=== PATIENT | male | born 1985 | race Caucasian/White ===

== ENCOUNTER 2025-03-06 15:55 | Emergency (ER) | payer OTHER, SELFPAY ==
--- NOTE | ~2025-03-06 | XR_ITS ---
Exam: 2 view left tibia-fibula AP and lateral x-rays lower extremity INDICATION: Erythema and swelling Prior: None FINDINGS: There is no sign of erosion, periosteal new bone formation, or other bony abnormality. There is reticulation of subcutaneous soft tissues. XR/XR tibia fibula LT 2V IMPRESSION: Soft tissue edema. No bony abnormality. Electronically signed by: Jv Gomez MD 03/06/2025 04:53 PM EDT
--- NOTE | ~2025-03-06 | US_ITS ---
CLINICAL HISTORY: swelling. DVT? Venous duplex ultrasound left lower extremity Comparison: None provided Findings: The visualized deep veins are fully compressible with normal Doppler color flow and spectral tracings. No popliteal cyst. Enlarged left inguinal lymph nodes the largest 4.1 cm x 2.1 cm x 0.9 cm, nonspecific and could be reactive. IMPRESSION: 1. Negative for left lower extremity deep vein thrombosis. 2. Enlarged left inguinal lymph nodes nonspecific and could be reactive. This document has been electronically signed by: Jacklyn Clay MD on 03/06/2025 17:20:40
--- NOTE | ~2025-03-06 | XR_ITS ---
EXAMINATION: XR FOOT, LEFT CLINICAL INFORMATION: swelling redness COMPARISON: None available. TECHNIQUE: AP, lateral, and oblique views of the left foot. FINDINGS: No fracture, dislocation, or suspicious bone lesion. There is normal alignment. Joint spaces are preserved. There is a mild pes planus. There is diffuse soft tissue swelling, most prominent along the dorsum of the foot. XR/XR foot LT 2V IMPRESSION: 1. Soft tissue swelling most prominent along the dorsum of the foot. No underlying bony abnormalities. Electronically signed by: Nicanor Snyder MD 03/06/2025 04:52 PM EDT
[2025-03-06 16:02] VITALS: BP 131/79; PULSE 105; RESP 20; TEMP 37; O2SAT 100; BMI 21.4
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
== END 2025-03-06 21:01 | disposition left against medical advice (07) ==
LOC: HO.ED 20:45
PROVIDERS: Emergency Provider Emergency Medicine
DX: L03.116 Cellulitis of left lower limb (principal)
CPT/HCPCS: 73590; 73620; 93971; 99281; 99284

== ENCOUNTER → 2025-03-06 16:04 | Outpatient (BNV) | payer OTHER, SELFPAY | PROVIDERS: Visit Provider Radiology Diagnostic Radiology | DX: M79.89 Other specified soft tissue disorders (principal); R60.0 Localized edema | CPT/HCPCS: 73590; 73620; 93971 ==

== ENCOUNTER 2025-03-07 15:30 | Emergency (ER) | payer OTHER, SELFPAY ==
[2025-03-07 15:43] VITALS: BP 135/76; PULSE 95; RESP 16; TEMP 36.7; O2SAT 98; BMI 21.2
--- NOTE | 2025-03-07 15:44 | ED_ITS ---
HPI - General Adult General Chief complaint: Extremity Problem Stated complaint: ? blood infection Related Data Allergies Allergy/AdvReac Type Severity Reaction Status Date / Time No Known Allergies Allergy Verified 03/07/25 15:47 PMF Social History Social History Advance Directives: No Advance Directives Information Provided: No Do you have a plan to hurt others: No Plan Physical Exam ED Vital Signs: Vital Signs - 24 hr 03/07/25 15:43 Temperature 98.0 F Pulse Rate 95 Respiratory Rate 16 Blood Pressure 135/76 Pulse Oximetry 98 Oxygen Delivery Method Room Air BMI result Body Mass Index 21.2 Course Course Course Narrative: This is a rapid medical exam performed by Beverly Caes NP: Additional HPI, ROS, PE not included below will be deferred to primary provider. Patient is a 39y/o M presenting with complaint of LLE erythema, warmth and swelling. Presented here yesterday but left without completing treatment. 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 Attempted to contact patient via telephone to discuss lab results, no answer, unable to leave voicemail. Medical Decision Making Lab Data 03/07/25 16:18 03/07/25 16:18 Labs: Lab Results 03/07/25 Range/Units 16:18 WBC 5.6 (4.8-10.8) X10*3/uL RBC 4.15 L (4.60-5.80) X10*6/uL Hgb 9.0 L (14.0-18.0) g/dl Hct 29.4 L (42.0-52.0) % MCV 70.8 L (80.0-98.0) fL MCH 21.7 L (27.0-33.0) pg MCHC 30.6 L (31.0-36.0) g/dl RDW 17.0 H (11.0-16.0) % Plt Count 310 (160-400) X10*3/uL MPV 8.9 L (9.4-12.4) fL Immature Gran % (Auto) 0.2 (0.0-0.4) % Neut % (Auto) 63.0 (45-73) % Lymph % (Auto) 24.8 (20-40) % Coleman % (Auto) 10.2 (2-11) % Eos % (Auto) 1.1 (0-4) % Baso % (Auto) 0.7 (0-2) % Lymph # (Auto) 1.4 (1.2-4.9) X10*3/uL Coleman # (Auto) 0.6 (0.1-1.2) X10*3/uL Eos # (Auto) 0.1 (0.0-0.4) X10*3/uL Baso # (Auto) 0.0 (0.0-0.2) X10*3/uL Abs Immat Gran (auto) 0.01 (0.00-0.03) X10*3/uL Absolute Neuts (auto) 3.5 (2.0-8.3) x10*3/uL Absolute Nucleated RBC 0.000 (0.0-0.012) X10*3/uL Nucleated RBC % (auto) 0.0 (0.0-0.2) /100WBC ESR 63 H (0-15) MM/HR Sodium 139 (135-145) mmol/L Potassium 4.4 (3.3-5.1) mmol/L Chloride 109 H (96-108) mmol/L Carbon Dioxide 27 (22-29) mmol/L Anion Gap 7 L (12-20) BUN 12 (9-16) mg/dL Creatinine 0.56 (0.5-1.4) mg/dL Estim Creat Clear Calc 174.8 Estimated GFR > 60 Random Glucose 101 (60-115) mg/dL Calcium 8.8 (8.4-10.2) mg/dL Total Bilirubin 0.2 (0.0-1.0) mg/dL AST 78 H (5-37) U/L ALT 97 H (0-40) U/L Alkaline Phosphatase 120 H (39-117) U/L C-Reactive Protein 5.01 H (< or = 0.50) mg/dL Total Protein 8.4 H (6.5-8.0) g/dL Albumin 3.8 (3.5-5.0) g/dL Discharge Plan Discharge Clinical Impression: Foot pain, left Patient Disposition: Left W/O Completing Treatment Discharge Date/Time: 03/07/25 20:55
[2025-03-07 16:23] LABS: MANUAL DIFF FLAG NO
[2025-03-07 16:31] LABS: Hematocrit 29.4 % (42.0-52.0); Hemoglobin 9.0 g/dl (14.0-18.0); Imm Gran Abs Auto 0.01 X10*3/uL (0.00-0.03); Imm Gran Pct Auto 0.2 % (0.0-0.4); Lymphocytes Absolute Auto 1.4 X10*3/uL (1.2-4.9); Mean Corpuscular HGB Conc 30.6 g/dl (31.0-36.0); Mean Corpuscular Hemoglobin 21.7 pg (27.0-33.0); Mean Corpuscular Volume 70.8 fL (80.0-98.0); NRBC Abs Auto 0.000 X10*3/uL (0.0-0.012); NRBC Pct Auto 0.0 /100WBC (0.0-0.2); Platelet Count 310 X10*3/uL (160-400); Red Blood Count 4.15 X10*6/uL (4.60-5.80); White Blood Count 5.6 X10*3/uL (4.8-10.8)
[2025-03-07 16:45] LABS: Alanine Aminotransferase 97 U/L (0-40); Albumin Level 3.8 g/dL (3.5-5.0); Alkaline Phosphatase 120 U/L (39-117); Anion Gap 7 (12-20); Aspartate Amino Transferase 78 U/L (5-37); Blood Urea Nitrogen 12 mg/dL (9-16); Calcium 8.8 mg/dL (8.4-10.2); Carbon Dioxide 27 mmol/L (22-29); Chloride 109 mmol/L (96-108); Creatinine Clr Calc Pharmacy 174.8; Estimated Glomerular Filt Rate > 60; Potassium 4.4 mmol/L (3.3-5.1); Sodium 139 mmol/L (135-145); Total Protein 8.4 g/dL (6.5-8.0)
[2025-03-07 18:07] VITALS: BP 116/61; PULSE 65; RESP 16; TEMP 36.9; O2SAT 99
--- NOTE | 2025-03-07 19:53 | PC.NURSE ---
Pt approach triage door requesting PO abx so he can go. Informed patient unfortuately he will he have be seen by a provider. Pt states he just wants to try abx and see if his foot gets better so he can go to work. Informed pt he will still need to see a provider to have that conversation w/ them. pt verbalized understanding.
--- NOTE | 2025-03-07 20:55 | PC.NURSE ---
called patient from waiting room and no answer. registration informed t/w that patient left.
== END 2025-03-07 20:55 | disposition left against medical advice (07) ==
PROVIDERS: Registered Nurse Emergency; Emergency Provider Emergency Medicine
DX: M79.672 Pain in left foot (principal)
CPT/HCPCS: 36415; 80053; 85025; 85652; 86140; 87040; 99282; 99283